=== PATIENT | male | born 1970 | race African-American/Black ===

== ENCOUNTER 2018-12-20 15:33 | Emergency (ER) | payer BC, MEDICAID ==
[~2018-12-20] VITALS: Ht 188 cm; Wt 90.0 kg
[2018-12-20 19:14] VITALS: BP 129/70
== END 2018-12-20 19:16 | disposition home or self-care (01) ==
LOC: ER 15:33
DX: R60.9 Edema, unspecified (principal); F17.200 Nicotine dependence, unspecified, uncomplicated; Z98.890 Other specified postprocedural states
CPT/HCPCS: 93971; 99284

== ENCOUNTER 2019-10-20 16:57 | Emergency (ER) | payer MEDICAID ==
[~2019-10-20] VITALS: Ht 188 cm; Wt 92.0 kg
[2019-10-20] MEDS ORDERED: ACETAMINOPHEN 325MG TABLET ONE (17:20)
[2019-10-20] MEDS ORDERED: KETOROLAC 60MG/2ML VIAL IM ONE (19:15)
[2019-10-20 20:04] VITALS: BP 111/65
== END 2019-10-20 20:58 | disposition home or self-care (01) ==
LOC: ER 16:57
DX: J06.9 Acute upper respiratory infection, unspecified (principal)
CPT/HCPCS: 71045; 96372; 99283; J1885